=== PATIENT | male | born 1950 | race Caucasian/White ===

== ENCOUNTER 2023-11-23 14:57 | Inpatient (IN) | payer OTHER, BC ==
[2023-11-23 17:20] LABS: BASO % 0.3 % (0-2.0); HEMATOCRIT 48.8 % (35.4-49); HEMOGLOBIN 16.6 GM/dL (11.7-16.9); LYMPH % 9.8 % (8-40); MCH 32.2 pg (25.7-33.7); MEAN CELL VOLUME 94.6 fl (80-96); MEAN PLT VOLUME 7.7 fl (7.5-11.1); MONO % 5.8 % (3.8-10.2); NEUT % 84.1 % (42.8-82.8); PLATELET COUNT 234 10^3/uL (134-434); RBC 5.16 M/mm3 (4.00-5.60); RDW 13.2 % (11.9-15.9); WHITE BLOOD COUNT 10.2 K/mm3 (4.0-10.0)
[2023-11-23 17:36] LABS: CHLORIDE 98 mmol/L (98-107); POTASSIUM 3.9 mmol/L (3.5-5.1); SODIUM 136 mmol/L (136-145)
[2023-11-23 17:38] LABS: ANION GAP 16 mmol/L (4-13); BLOOD UREA NITROGEN 26.2 mg/dL (7-18); CALCIUM 9.2 mg/dL (8.5-10.1); CO2 22 mmol/L (21-32); GLUCOSE,RANDOM 172 mg/dL (74-106); MAGNESIUM 2.5 mg/dL (1.8-2.4)
[2023-11-23 17:41] LABS: CREATININE 1.8 mg/dL (0.55-1.3); SGOT/AST 405 U/L (15-37)
[2023-11-23 17:42] LABS: SGPT/ALT 76 U/L (13-61)
[2023-11-23 17:43] LABS: BILIRUBIN,TOTAL 1.2 mg/dL (0.2-1); TOT PROT 7.6 g/dl (6.4-8.2)
[2023-11-23 17:44] LABS: ALK PHOS 76 U/L (45-117)
[2023-11-23] MEDS ORDERED: ASPIRIN 81 MG CHEWABLE TABLETS ONE ×2 (18:01→18:24)
[2023-11-23] MEDS: LACTATED RINGERS SOLUTION 1000 ML INFUS.BAG IV ONE (18:02)
[2023-11-23] MEDS: ASPIRIN 81 MG CHEWABLE TABLETS PO ONE (18:02)
[2023-11-23] MEDS: SODIUM CHLORIDE 0.9% 500 ML INFUS.BAG IV ONE (21:42)
[2023-11-23] MEDS: SODIUM CHLORIDE 1,000 ML IV SCH (21:50)
[2023-11-24] MEDS: REMDESIVIR 200 MG in SODIUM CHLORIDE 250 ML IVPB ONE (01:00)
[2023-11-24] MEDS ORDERED: INSULIN ASPART SLIDING SCALE (NOVOLOG) 1 VIAL SQ SCH (07:00)
[2023-11-24 07:10] LABS: BASO % 0.4 % (0-2.0); EOS % 2.1 % (0-4.5); HEMATOCRIT 39.2 % (35.4-49); HEMOGLOBIN 13.2 GM/dL (11.7-16.9); LYMPH % 19.1 % (8-40); MCHC 33.7 g/dl (32.0-35.9); MEAN CELL VOLUME 94.9 fl (80-96); MEAN PLT VOLUME 7.4 fl (7.5-11.1); MONO % 7.1 % (3.8-10.2); NEUT % 71.3 % (42.8-82.8); PLATELET COUNT 189 10^3/uL (134-434); RBC 4.13 M/mm3 (4.00-5.60); WHITE BLOOD COUNT 6.6 K/mm3 (4.0-10.0)
[2023-11-24 07:21] LABS: POTASSIUM 3.9 mmol/L (3.5-5.1)
[2023-11-24 07:26] LABS: BLOOD UREA NITROGEN 26.8 mg/dL (7-18); CALCIUM 7.9 mg/dL (8.5-10.1); MAGNESIUM 2.3 mg/dL (1.8-2.4)
[2023-11-24 07:29] LABS: BILIRUBIN,DIRECT 0.1 mg/dL (0.0-0.2); CREATININE 1.4 mg/dL (0.55-1.3); PHOSPHOROUS 3.5 mg/dL (2.5-4.9)
[2023-11-24 07:31] LABS: BILIRUBIN,TOTAL 0.7 mg/dL (0.2-1)
[2023-11-24 07:32] LABS: TOT PROT 5.6 g/dl (6.4-8.2)
[2023-11-24] MEDS: INSULIN ASPART SLIDING SCALE (NOVOLOG) 1 VIAL SQ SCH (07:52)
[2023-11-24] MEDS ORDERED: methylPREDNISolone NA SUCC 125 MG/2 ML VIAL IM SCH (10:00)
[2023-11-24] MEDS: ASPIRIN COATED 81 MG TABLET.EC PO SCH (11:28)
[2023-11-24] MEDS: LACTATED RINGERS SOLUTION 1,000 ML/1,000 ML INFUS.BAG IV STA (13:12)
[2023-11-24] MEDS ORDERED: traZODone HCL 50 MG TABLET (FP) ONE (20:00)
[2023-11-24 20:38] VITALS: BMI 37.2
[2023-11-24] MEDS ORDERED: traZODone HCL 100 MG TABLET (FP) PO SCH (22:00)
[2023-11-24] MEDS: REMDESIVIR 100 MG in SODIUM CHLORIDE 250 ML IVPB SCH (22:08)
[2023-11-24] MEDS: traZODone HCL 100 MG TABLET (FP) PO SCH (22:09)
[2023-11-25 07:00] LABS: HEMATOCRIT 36.2 % (35.4-49); HEMOGLOBIN 12.3 GM/dL (11.7-16.9); MCH 32.3 pg (25.7-33.7); MEAN CELL VOLUME 94.9 fl (80-96); MEAN PLT VOLUME 7.5 fl (7.5-11.1); PLATELET COUNT 169 10^3/uL (134-434); RBC 3.82 M/mm3 (4.00-5.60); RDW 12.9 % (11.9-15.9); WHITE BLOOD COUNT 5.5 K/mm3 (4.0-10.0)
[2023-11-25 07:16] LABS: POTASSIUM 3.8 mmol/L (3.5-5.1)
[2023-11-25 07:27] LABS: CALCIUM 7.7 mg/dL (8.5-10.1)
[2023-11-25 07:28] LABS: ALBUMIN 2.8 g/dl (3.4-5.0); BLOOD UREA NITROGEN 26.3 mg/dL (7-18)
[2023-11-25 07:31] LABS: CREATININE 1.1 mg/dL (0.55-1.3)
[2023-11-25 07:33] LABS: BILIRUBIN,TOTAL 0.6 mg/dL (0.2-1); TOT PROT 5.5 g/dl (6.4-8.2)
[2023-11-25] MEDS ORDERED: traZODone HCL 50 MG TABLET (FP) ONE (20:56)
[2023-11-25] MEDS ORDERED: traZODone HCL 100 MG TABLET (FP) PO SCH (21:16)
[2023-11-25] MEDS: LACTATED RINGERS SOLUTION 1,000 ML/1,000 ML INFUS.BAG IV SCH (21:29)
[2023-11-25] MEDS: traZODone HCL 50 MG TABLET (FP) PO SCH (21:38)
[2023-11-26 06:33] LABS: HEMOGLOBIN 12.2 GM/dL (11.7-16.9); MCH 32.1 pg (25.7-33.7); MCHC 33.9 g/dl (32.0-35.9); MEAN CELL VOLUME 94.7 fl (80-96); MEAN PLT VOLUME 7.6 fl (7.5-11.1); PLATELET COUNT 160 10^3/uL (134-434); RDW 12.9 % (11.9-15.9); WHITE BLOOD COUNT 4.6 K/mm3 (4.0-10.0)
[2023-11-26 07:08] LABS: POTASSIUM 4.1 mmol/L (3.5-5.1)
[2023-11-26 07:15] LABS: CALCIUM 8.3 mg/dL (8.5-10.1)
[2023-11-26 07:16] LABS: ALBUMIN 2.8 g/dl (3.4-5.0); BLOOD UREA NITROGEN 21.6 mg/dL (7-18); MAGNESIUM 1.8 mg/dL (1.8-2.4)
[2023-11-26 07:19] LABS: CREATININE 1.1 mg/dL (0.55-1.3)
[2023-11-26 07:20] LABS: BILIRUBIN,TOTAL 0.6 mg/dL (0.2-1)
[2023-11-26 07:21] LABS: TOT PROT 5.5 g/dl (6.4-8.2)
[2023-11-27 06:52] LABS: HEMATOCRIT 34.8 % (35.4-49); HEMOGLOBIN 12.2 GM/dL (11.7-16.9); MCH 32.7 pg (25.7-33.7); MCHC 34.9 g/dl (32.0-35.9); MEAN CELL VOLUME 93.6 fl (80-96); MEAN PLT VOLUME 7.7 fl (7.5-11.1); PLATELET COUNT 179 10^3/uL (134-434); RBC 3.72 M/mm3 (4.00-5.60); RDW 12.8 % (11.9-15.9); WHITE BLOOD COUNT 4.2 K/mm3 (4.0-10.0)
[2023-11-27 07:29] LABS: POTASSIUM 4.2 mmol/L (3.5-5.1)
[2023-11-27 07:38] LABS: ALBUMIN 2.8 g/dl (3.4-5.0); BLOOD UREA NITROGEN 24.4 mg/dL (7-18); TOT PROT 5.6 g/dl (6.4-8.2)
[2023-11-27 07:39] LABS: BILIRUBIN,TOTAL 0.6 mg/dL (0.2-1); CALCIUM 8.3 mg/dL (8.5-10.1)
[2023-11-27 07:40] LABS: MAGNESIUM 2.1 mg/dL (1.8-2.4); PHOSPHOROUS 3.3 mg/dL (2.5-4.9)
[2023-11-27 07:41] LABS: CREATININE 1.1 mg/dL (0.55-1.3)
[2023-11-27] MEDS: LACTATED RINGERS SOLUTION 1,000 ML/1,000 ML INFUS.BAG IV SCH ×2 (09:31→14:44)
[2023-11-28 07:21] LABS: POTASSIUM 4.1 mmol/L (3.5-5.1)
[2023-11-28 07:32] LABS: CALCIUM 8.6 mg/dL (8.5-10.1)
[2023-11-28 07:34] LABS: ALBUMIN 2.8 g/dl (3.4-5.0); BLOOD UREA NITROGEN 26.4 mg/dL (7-18); MAGNESIUM 1.8 mg/dL (1.8-2.4)
[2023-11-28 07:37] LABS: CREATININE 1.2 mg/dL (0.55-1.3); PHOSPHOROUS 3.1 mg/dL (2.5-4.9)
[2023-11-28 07:38] LABS: BILIRUBIN,TOTAL 0.8 mg/dL (0.2-1); TOT PROT 5.7 g/dl (6.4-8.2)
[2023-11-28 08:11] LABS: HEMATOCRIT 35.6 % (35.4-49); HEMOGLOBIN 12.1 GM/dL (11.7-16.9); MEAN CELL VOLUME 94.1 fl (80-96); MEAN PLT VOLUME 7.4 fl (7.5-11.1); PLATELET COUNT 204 10^3/uL (134-434); RBC 3.78 M/mm3 (4.00-5.60); WHITE BLOOD COUNT 4.8 K/mm3 (4.0-10.0)
[2023-11-28] MEDS: LACTATED RINGERS SOLUTION 1,000 ML/1,000 ML INFUS.BAG IV SCH (10:14)
[2023-11-29 07:39] LABS: HEMATOCRIT 35.7 % (35.4-49); HEMOGLOBIN 12.2 GM/dL (11.7-16.9); MCH 32.2 pg (25.7-33.7); MCHC 34.2 g/dl (32.0-35.9); MEAN PLT VOLUME 7.5 fl (7.5-11.1); PLATELET COUNT 244 10^3/uL (134-434); RBC 3.79 M/mm3 (4.00-5.60); WHITE BLOOD COUNT 5.2 K/mm3 (4.0-10.0)
[2023-11-29 07:51] LABS: POTASSIUM 4.1 mmol/L (3.5-5.1)
[2023-11-29 07:53] LABS: BLOOD UREA NITROGEN 22.2 mg/dL (7-18); CALCIUM 8.7 mg/dL (8.5-10.1)
[2023-11-29 07:55] LABS: MAGNESIUM 1.6 mg/dL (1.8-2.4)
[2023-11-29 07:57] LABS: CREATININE 1.1 mg/dL (0.55-1.3); PHOSPHOROUS 3.1 mg/dL (2.5-4.9)
[2023-11-29 07:59] LABS: BILIRUBIN,TOTAL 0.7 mg/dL (0.2-1); TOT PROT 5.8 g/dl (6.4-8.2)
[2023-11-29] MEDS: ENOXAPARIN NA (PORCINE) 40 MG/0.4 ML DISP.SYRIN SQ SCH (10:45)
[2023-11-29] MEDS: MAGNESIUM SULF 50% (8.12 MEQ/2 ML-1 GM VIAL) IVPB ONE (17:31)
[2023-11-30 08:21] LABS: POTASSIUM 4.1 mmol/L (3.5-5.1)
[2023-11-30 08:28] LABS: BLOOD UREA NITROGEN 17.7 mg/dL (7-18); CALCIUM 8.6 mg/dL (8.5-10.1)
[2023-11-30 08:31] LABS: PHOSPHOROUS 3.4 mg/dL (2.5-4.9)
[2023-11-30 08:32] LABS: BILIRUBIN,TOTAL 0.6 mg/dL (0.2-1); CREATININE 1.2 mg/dL (0.55-1.3)
[2023-11-30] MEDS: LACTATED RINGERS SOLUTION 1,000 ML/1,000 ML INFUS.BAG IV SCH (13:00)
[2023-12-01 08:06] LABS: MAGNESIUM 1.8 mg/dL (1.8-2.4)
[2023-12-01 08:31] VITALS: RESP 18
[2023-12-01] MEDS: LACTATED RINGERS SOLUTION 1,000 ML/1,000 ML INFUS.BAG IV SCH (09:43)
[2023-12-01] MEDS ORDERED: INSULIN (NOVOLOG) ASPART 100 UNITS/ML 10ML VIAL ONE (11:03)
[2023-12-01 15:01] VITALS: BP 121/73; PULSE 88; TEMP 98.9
== END 2023-12-01 15:48 | DRG 178 ==
LOC: JER 14:57 → JERBED 22:15 → OBSVTOIN 22:36 → J4W 11-24 19:18
PROVIDERS: ADMIT Internal Medicine; ATTEND Internal Medicine
PROC: XW033E5 Introduction of Remdesivir Anti-infective into Peripheral Vein, Percutaneous Approach, New Technology Group 5 (ICD-10-PCS; principal; 2023-11-23)
DX: U07.1 COVID-19 (principal); I24.89 Other forms of acute ischemic heart disease; M62.82 Rhabdomyolysis; N17.9 Acute kidney failure, unspecified; I10 Essential (primary) hypertension; E78.5 Hyperlipidemia, unspecified; G47.00 Insomnia, unspecified; M25.511 Pain in right shoulder; E11.9 Type 2 diabetes mellitus without complications; N40.0 Benign prostatic hyperplasia without lower urinary tract symptoms; E86.0 Dehydration; R74.8 Abnormal levels of other serum enzymes; W18.30XA Fall on same level, unspecified, initial encounter; Y92.098 Other place in other non-institutional residence as the place of occurrence of the external cause; Y99.9 Unspecified external cause status
CPT/HCPCS: 0241U-QW; 36415; 70450-TC; 70551-TC; 71045-TC-FY; 73030-TC-RT-FY; 73562-TC-RT-FY; 73564-TC-LT-FY; 76700-TC; 80053; 80076; 82550; 82553; 82962; 83036; 83735; 84100; 84439; 84443; 84484; 85025; 85027; 93005; 93010; 97116-GP; 97162-GP; 99285-25; G0378; J0248

== ENCOUNTER 2025-02-04 19:13 | Emergency (ER) | payer OTHER, BC ==
[2025-02-04 19:51] VITALS: RESP 16; BMI 26.9
[2025-02-04 20:36] VITALS: TEMP 99.8
[2025-02-04 20:36] LABS: ABSOLUTE IMMATURE GRANULOCYTES 0.04 x10^3/uL (0.0-0.031); BASOPHILS # 0.02 x10^3/uL (0.01-0.08); EOSINOPHIL % 0.9 % (0.8-7.0); HEMATOCRIT 34.9 % (40.1-51.0); HEMOGLOBIN 11.6 g/dL (13.7-17.5); MCHC 33.2 g/dl (32.3-36.5); MEAN CELL VOLUME 95.9 fl (79.0-92.2); MEAN PLT VOLUME 9.4 fl (9.4-12.4); MONOCYTE # 0.65 x10^3/uL (0.30-0.82); MONOCYTE % 6.1 % (5.3-12.2); PLATELET COUNT 270 x10^3/uL (163-337); RDW 12.5 % (12.2-16.6)
[2025-02-04 21:13] LABS: PH,URINE 5.5 (5.0-8.0); URINE APPEARANCE CLEAR; URINE BILIRUBIN NEGATIVE (NEGATIVE); URINE COLOR YELLOW; URINE GLUCOSE (UA) 3+ (NEGATIVE); URINE KETONE NEGATIVE (NEGATIVE); URINE LEUK ESTERASE NEGATIVE (NEGATIVE); URINE NITRITE NEGATIVE (NEGATIVE); URINE PROTEIN NEGATIVE (NEGATIVE); URINE UROBILINOGEN 0.2 mg/dL (0.2-1.0)
[2025-02-04 21:42] LABS: POTASSIUM 4.3 mmol/L (3.5-5.1)
[2025-02-04 21:47] LABS: ALBUMIN 3.5 g/dl (3.4-5.0); BLOOD UREA NITROGEN 31.5 mg/dL (7-18); CALCIUM 9.6 mg/dL (8.5-10.1); CREATININE 1.5 mg/dL (0.55-1.3); MAGNESIUM 2.1 mg/dL (1.8-2.4)
[2025-02-04 21:49] LABS: BILIRUBIN,TOTAL 0.3 mg/dL (0.2-1)
[2025-02-04 21:55] LABS: TOT PROT 6.5 g/dl (6.4-8.2)
[2025-02-04] MEDS: LACTATED RINGERS SOLUTION 1000 ML INFUS.BAG IV ONE (22:01)
[2025-02-04 22:48] VITALS: BP 110/58; PULSE 76
== END 2025-02-04 23:55 | disposition home or self-care (01) ==
LOC: JER 19:13
DX: R53.1 Weakness (principal); R53.83 Other fatigue; R41.0 Disorientation, unspecified; F10.10 Alcohol abuse, uncomplicated; Y90.5 Blood alcohol level of 100-119 mg/100 ml; W01.0XXA Fall on same level from slipping, tripping and stumbling without subsequent striking against object, initial encounter; Y92.481 Parking lot as the place of occurrence of the external cause
CPT/HCPCS: 0241U-QW; 36415; 70450-TC; 71045-TC-FY; 80053; 80307; 81003; 82550; 82962; 83735; 84484; 85025; 87086; 93005; 93010; 99285-25

== ENCOUNTER 2025-05-12 17:21 | Observation (INO) | payer OTHER, BC ==
[2025-05-12] MEDS ORDERED: ACETAMINOPHEN INJECTION 100 ML ONE (17:45)
[2025-05-12 18:03] LABS: BG HCT 35.0 % (35.4-49); VENOUS BASE EXCESS -0.1 mmol/L (-2-2); VENOUS O2 SATURATION 91.8 % (70-80); VENOUS PCO2 32.8 mmHg (38-52); VENOUS PH 7.465 (7.310-7.410)
[2025-05-12 18:15] LABS: ABSOLUTE IMMATURE GRANULOCYTES 0.04 x10^3/uL (0.0-0.031); BASOPHILS # 0.05 x10^3/uL (0.01-0.08); EOSINOPHIL % 1.5 % (0.8-7.0); EOSINOPHILS # 0.15 x10^3/uL (0.04-0.54); MCHC 33.8 g/dl (32.3-36.5); MEAN CELL VOLUME 90.3 fl (79.0-92.2); MEAN PLT VOLUME 8.8 fl (9.4-12.4); MONOCYTE # 0.63 x10^3/uL (0.30-0.82); MONOCYTE % 6.2 % (5.3-12.2); RDW 12.4 % (12.2-16.6)
[2025-05-12] MEDS ORDERED: CEFEPIME HCL/D5W 1 GM/50 ML BAG IVPB ONE (18:21)
[2025-05-12] MEDS ORDERED: VANCOMYCIN 1 GM PREMIX (F) 1 GM/200 ML BAG ONE (18:21)
[2025-05-12 18:24] LABS: INR 1.37 (0.83-1.09); PROTHROMBIN TIME (PATIENT) 14.9 SEC (9.7-13.0)
[2025-05-12 18:27] LABS: ACTIVATED PTT 29.1 SECONDS (25.2-36.5)
[2025-05-12 18:31] LABS: CO2 23.0 mmol/L (21-32); GLUCOSE,RANDOM 241.0 mg/dL (74-106)
[2025-05-12 18:34] LABS: CREATININE 1.5 mg/dL (0.55-1.3); SGOT/AST 14.0 U/L (15-37); SGPT/ALT 20.0 U/L (13-61)
[2025-05-12 18:36] LABS: TOT PROT 6.8 g/dl (6.4-8.2)
[2025-05-12 18:37] LABS: ALK PHOS 91.0 U/L (45-117)
[2025-05-12] MEDS: ACETAMINOPHEN 1000 MG/100 ML BAG IVPB ONE (18:43)
[2025-05-12] MEDS: CEFEPIME HCL 1 GM VIAL (RESTRICTED TO ID) IVPB ONE (18:43)
[2025-05-12] MEDS: VANCOMYCIN 1,000 MG in DEXTROSE 5%-WATER - 250 ML IVPB ONE (18:43)
[2025-05-12] MEDS: SODIUM CHLORIDE 0.9% 500 ML INFUS.BAG IV ONE (18:43)
[2025-05-12 20:31] LABS: URINE APPEARANCE CLEAR; URINE BILIRUBIN NEGATIVE (NEGATIVE); URINE COLOR YELLOW; URINE GLUCOSE (UA) 2+ (NEGATIVE); URINE KETONE NEGATIVE (NEGATIVE); URINE LEUK ESTERASE NEGATIVE (NEGATIVE); URINE NITRITE NEGATIVE (NEGATIVE); URINE PROTEIN NEGATIVE (NEGATIVE); URINE UROBILINOGEN 1.0 mg/dL (0.2-1.0)
[2025-05-12 20:55] LABS: COCAINE, UR NEGATIVE (NEGATIVE); METHADONE, UR NEGATIVE (NEGATIVE); URINE BARBITURATES NEGATIVE (NEGATIVE); URINE BENZODIAZEPINES NEGATIVE (NEGATIVE)
[2025-05-12 20:56] LABS: OPIATES, URI NEGATIVE (NEGATIVE); PHENCYCLIDINE,URINE NEGATIVE (NEGATIVE); URINE AMPHETAMINES NEGATIVE (NEGATIVE)
[2025-05-13] MEDS ORDERED: ACETAMINOPHEN 1000 MG/100 ML BAG IVPB PRN (00:45)
[2025-05-13] MEDS: SODIUM CHLORIDE 1,000 ML IV SCH (01:00)
[2025-05-13] MEDS: ATORVASTATIN CA 20 MG TABLET (FP) PO SCH (01:00)
[2025-05-13 03:18] VITALS: BMI 12.0
[2025-05-13] MEDS: HEPARIN NA (PORCINE) 5,000 UNITS/ML 1ML VIAL SQ SCH (05:31)
[2025-05-13] MEDS: INSULIN ASPART SLIDING SCALE (NOVOLOG) 1 VIAL SQ SCH (06:06)
[2025-05-13 07:24] LABS: ABSOLUTE IMMATURE GRANULOCYTES 0.02 x10^3/uL (0.0-0.031); BASOPHILS # 0.03 x10^3/uL (0.01-0.08); EOSINOPHIL % 4.7 % (0.8-7.0); EOSINOPHILS # 0.30 x10^3/uL (0.04-0.54); MCHC 32.4 g/dl (32.3-36.5); MEAN CELL VOLUME 92.9 fl (79.0-92.2); MEAN PLT VOLUME 9.0 fl (9.4-12.4); MONOCYTE # 0.53 x10^3/uL (0.30-0.82); MONOCYTE % 8.2 % (5.3-12.2); RDW 12.4 % (12.2-16.6)
[2025-05-13 07:31] LABS: CO2 28.0 mmol/L (21-32); GLUCOSE,RANDOM 111.0 mg/dL (74-106)
[2025-05-13 07:34] LABS: CREATININE 1.0 mg/dL (0.55-1.3); SGOT/AST 8.0 U/L (15-37); SGPT/ALT 16.0 U/L (13-61)
[2025-05-13 07:35] LABS: TOT PROT 5.6 g/dl (6.4-8.2)
[2025-05-13 07:36] LABS: ALK PHOS 75.0 U/L (45-117)
[2025-05-13 09:05] LABS: IRON SERUM 38 ug/dL (50-175)
[2025-05-13] MEDS: FINASTERIDE 5 MG TABLET (FP) PO SCH (09:17)
[2025-05-13] MEDS: ASPIRIN COATED 81 MG TABLET.EC PO SCH (09:17)
[2025-05-13] MEDS: CEFEPIME 0.5 GM in DEXTROSE 5%-WATER - 50 ML IVPB SCH (09:17)
[2025-05-13] MEDS: MAGNESIUM SULF 50% (8.12 MEQ/2 ML-1 GM VIAL) IVPB ONE (10:00)
[2025-05-13] MEDS ORDERED: CEFEPIME HCL 1 GM VIAL (RESTRICTED TO ID) IVPB SCH (10:00)
[2025-05-13] MEDS: POLYETHYLENE GLYCOL (HEALTHYLAX) 3350 17 GM PACKET PO SCH (13:10)
[2025-05-13] MEDS: DOCUSATE SODIUM 100 MG CAPSULE (FP) PO ONE (13:10)
[2025-05-13] MEDS ORDERED: VANCOMYCIN/WATER 1250 MG 1,250 MG/250 ML BAG IVPB SCH (19:00)
[2025-05-14 09:23] LABS: ABSOLUTE IMMATURE GRANULOCYTES 0.02 x10^3/uL (0.0-0.031); BASOPHILS # 0.02 x10^3/uL (0.01-0.08); EOSINOPHIL % 4.4 % (0.8-7.0); EOSINOPHILS # 0.24 x10^3/uL (0.04-0.54); MCHC 32.7 g/dl (32.3-36.5); MEAN CELL VOLUME 91.5 fl (79.0-92.2); MEAN PLT VOLUME 9.0 fl (9.4-12.4); MONOCYTE # 0.36 x10^3/uL (0.30-0.82); MONOCYTE % 6.7 % (5.3-12.2); RDW 12.2 % (12.2-16.6)
[2025-05-14 10:09] LABS: ALK PHOS 81.0 U/L (45-117); CO2 28.0 mmol/L (21-32); CREATININE 0.9 mg/dL (0.55-1.3); GLUCOSE,RANDOM 189.0 mg/dL (74-106); SGOT/AST 9.0 U/L (15-37); SGPT/ALT 16.0 U/L (13-61); TOT PROT 6.1 g/dl (6.4-8.2)
[2025-05-14 11:03] VITALS: BP 130/68; PULSE 74; RESP 22; TEMP 98.4
[2025-05-15] MEDS ORDERED: CEFEPIME 0.5 GM in DEXTROSE 5%-WATER - 50 ML IVPB SCH (10:00)
[2025-05-15] MEDS ORDERED: VANCOMYCIN/WATER 1250 MG 1,250 MG/250 ML BAG IVPB SCH (19:00)
== END 2025-05-14 13:17 | disposition home or self-care (01) ==
LOC: JER 17:21 → JERBED 23:37 → J4W 05-13 02:35
PROVIDERS: ADMIT Hospitalist; ATTEND Internal Medicine
PROC: 3E03329 Introduction of Other Anti-infective into Peripheral Vein, Percutaneous Approach (ICD-10-PCS; principal; 2025-05-12)
PROC: 3E033NZ Introduction of Analgesics, Hypnotics, Sedatives into Peripheral Vein, Percutaneous Approach (ICD-10-PCS; 2025-05-12)
PROC: 3E033GC Introduction of Other Therapeutic Substance into Peripheral Vein, Percutaneous Approach (ICD-10-PCS; 2025-05-12)
PROC: 3E023GC Introduction of Other Therapeutic Substance into Muscle, Percutaneous Approach (ICD-10-PCS; 2025-05-12)
PROC: 3E013VG Introduction of Insulin into Subcutaneous Tissue, Percutaneous Approach (ICD-10-PCS; 2025-05-12)
PROC: 3E0337Z Introduction of Electrolytic and Water Balance Substance into Peripheral Vein, Percutaneous Approach (ICD-10-PCS; 2025-05-12)
DX: F10.99 Alcohol use, unspecified with unspecified alcohol-induced disorder (principal); A41.9 Sepsis, unspecified organism; R41.82 Altered mental status, unspecified; I10 Essential (primary) hypertension; E78.5 Hyperlipidemia, unspecified; E11.9 Type 2 diabetes mellitus without complications; F17.200 Nicotine dependence, unspecified, uncomplicated; Z88.0 Allergy status to penicillin
CPT/HCPCS: 36415; 70450-TC; 70551-TC; 71045-TC-FY; 71260-TC; 74177-TC; 80053; 80307; 81003; 82550; 82607; 82728; 82746; 82803; 82962; 83010; 83540; 83550; 83605; 83735; 84100; 84439; 84443; 84484; 85025; 85610; 85651; 85730; 86140; 86850; 86900; 86901; 87040; 87086; 87637-QW; 93005; 93010; 93306-TC; 93880-TC; 96361; 96365; 96372; 96375; 97116-GP; 97162-GP; 99291; G0378